=== PATIENT | female | born 1995 | race Caucasian/White ===

== ENCOUNTER 2016-05-16 10:12 | Emergency (ER) | payer BC ==
[~2016-05-16] VITALS: Ht 162.6 cm; Wt 49.8 kg
[2016-05-16 10:16] VITALS: Ht 162.6 cm; Wt 49.8 kg
[2016-05-16] MEDS ORDERED: SODIUM CHLORIDE 0.9% 1000ML 1,000 ML IV STA (10:29)
[2016-05-16] MEDS ORDERED: KETOROLAC TROMETHAMINE 30 MG/ML VIAL IV STA (10:29)
--- NOTE | 2016-05-16 10:35 | EMERGENCY ROOM VISIT NOTE ---
History Report prepared by Kaylin: Brittney Aranda Under the Supervision of: Dr. Luan Tovar D.O. First contact with patient: 10:21 Chief Complaint: NECK PAIN Stated Complaint: NECK PAIN,STIFFNESS,SORE THROAT,ITCHY History of Present Illness The patient is a 21 year old female who presents to the Emergency Room with complaints of persistent neck pain over the past few days. The patient states that earlier this week, she developed body aches, a sore throat, and headache at the back of her head. She was seen at [facility] 3 days ago and was put on Prednisone. Her strep test was negative. When the patient started to take the Prednisone, she noticed itchiness to her feet and legs. She stopped taking the Prednisone because she was concerned about an allergic reaction. She noticed some redness to her feet and legs but attributes the redness to itching. Since then, her headache has moved to the back of her neck. Her pain is worse with movement of her neck. She has noticed improvement in her sore throat and body aches. She had a subjective fever 2 days ago and felt better after taking ibuprofen. She does not have any close contacts ill with similar symptoms. Denies recent travel. Denies cough, runny nose, nausea, vomiting, back pain, vaginal bleeding or discharge, leg swelling, rash, or other complaints. Her last period was 3 weeks ago. It was normal. Source of History: patient Onset: a few days ago Position: neck Timing: other (persistent) Modifying Factors (Worsening): movement Associated Symptoms: + fevers (subjective, resolved), No back pain, No cough , No nausea, No vomiting Review of Systems See HPI for pertinent positives & negatives. A total of 10 systems reviewed and were otherwise negative. Past Medical & Surgical Medical Problems: (1) No Known Active Medical Problems Family History No pertinent family history stated. Social History Smoking Status: Never Smoker Alcohol Use: none Housing Status: lives with roommate Occupation Status: [employer] student Current/Historical Medications Scheduled Control Pills ( Control Pills), 1 TAB PO DAILY Cephalexin Monohydrate (Keflex), 500 MG PO QID Allergies Coded Allergies: No Known Allergies (Unverified , 05/16/16) Physical Exam Vital Signs Date Time Temp Pulse Resp B/P Pulse Ox O2 Delivery O2 Flow Rate FiO2 05/16/16 13:59 37.3 115 16 128/87 100 05/16/16 10:16 37.3 115 16 128/87 100 Room Air Physical Exam GENERAL: Patient is awake, alert, and in no acute distress. Patient is resting comfortably and showing no signs of anxiety EYES: There was bilateral conjunctival injection noted. No discharge was appreciated. Pupils equal round and reactive to light. Extraocular muscles intact. EARS, NOSE, MOUTH AND THROAT: TMs are clear bilaterally. Bilateral tonsillar hypertrophy but no erythema or exudate appreciated. NECK: Anterior cervical adenopathy noted, left greater than right. No meningismus appreciated. RESPIRATORY: Normal respiratory effort is noted there is no evidence of wheezing rhonchi or rales CARDIOVASCULAR: Tachycardic but regular. There were no definite murmurs noted to auscultation. GASTROINTESTINAL: The abdomen is soft. Bowel sounds are present in all quadrants. Abdomen is nontender MUSCULOSKELETAL/EXTREMITIES: There is no evidence of gross deformity full range of motion is noted in the hips and shoulders SKIN: There is no obvious evidence of any rash. There are no petechiae, pallor or cyanosis noted. NEUROLOGIC: Patient is awake alert and oriented x3 strength is symmetric patellar reflexes are 2+ bilaterally Medical Decision & Procedures ER Provider Diagnostic Interpretation: Radiology results as stated below per my review and radiologist interpretation: SOFT TISSUE NECK TECHNIQUE: AP and lateral soft tissue neck FINDINGS: Normal prevertebral soft tissues. No distention of the hypopharynx. The epiglottis is normal. IMPRESSION: Normal study. Electronically signed by: Scar Edmondson M.D. 05/16/2016 11:29 AM Dictated Date/Time: 05/16/2016 11:29 AM TWO VIEW CHEST CLINICAL HISTORY: Fever. FINDINGS: PA and lateral chest radiographs are obtained. No prior studies are available for comparison at the time of dictation. The cardiomediastinal silhouette is unremarkable. The lungs and pleural spaces are clear. There is no pneumothorax. The bony thorax appears intact. IMPRESSION: No active disease in the chest. Electronically signed by: Allen Gunderson M.D. 05/16/2016 11:26 AM Dictated Date/Time: 05/16/2016 11:25 AM Laboratory Results 05/16/16 10:45 Red Blood Count 4.44, Mean Corpuscular Volume 84.2, Mean Corpuscular Hemoglobin 28.8, Mean Corpuscular Hemoglobin Concent 34.2, Mean Platelet Volume 9.1, Neutrophils (%) (Auto) 71.8, Lymphocytes (%) (Auto) 18.8, Monocytes (%) (Auto) 6.4, Eosinophils (%) (Auto) 2.6, Basophils (%) (Auto) 0.2, Neutrophils # (Auto) 9.40, Lymphocytes # (Auto) 2.46, Monocytes # (Auto) 0.84, Eosinophils # (Auto) 0.34, Basophils # (Auto) 0.03 05/16/16 10:45 Test 05/16/16 10:45 05/16/16 11:00 White Blood Count 13.09 K/uL (4.8-10.8) Red Blood Count 4.44 M/uL (4.2-5.4) Hemoglobin 12.8 g/dL (12.0-16.0) Hematocrit 37.4 % (37-47) Mean Corpuscular Volume 84.2 fL (80-100) Mean Corpuscular Hemoglobin 28.8 pg (25-34) Mean Corpuscular Hemoglobin Concent 34.2 g/dl (32-36) Platelet Count 281 K/uL (130-400) Mean Platelet Volume 9.1 fL (7.4-10.4) Neutrophils (%) (Auto) 71.8 % Lymphocytes (%) (Auto) 18.8 % Monocytes (%) (Auto) 6.4 % Eosinophils (%) (Auto) 2.6 % Basophils (%) (Auto) 0.2 % Neutrophils # (Auto) 9.40 K/uL (1.4-6.5) Lymphocytes # (Auto) 2.46 K/uL (1.2-3.4) Monocytes # (Auto) 0.84 K/uL (0.11-0.59) Eosinophils # (Auto) 0.34 K/uL (0-0.5) Basophils # (Auto) 0.03 K/uL (0-0.2) RDW Standard Deviation 42.2 fL (36.4-46.3) RDW Coefficient of Variation 13.6 % (11.5-14.5) Immature Granulocyte % (Auto) 0.2 % Immature Granulocyte # (Auto) 0.02 K/uL (0.00-0.02) Erythrocyte Sedimentation Rate 40 mm/hr (0-21) Anion Gap 12.0 mmol/L (3-11) Est Creatinine Clear Calc Drug Dose 82.0 ml/min Estimated GFR () 112.7 Estimated GFR (Non- 97.3 BUN/Creatinine Ratio 10.1 (10-20) Calcium Level 9.5 mg/dl (8.5-10.1) Total Bilirubin 0.3 mg/dl (0.2-1) Direct Bilirubin < 0.1 mg/dl (0-0.2) Aspartate Amino Transf (AST/SGOT) 7 U/L (15-37) Alanine Aminotransferase (ALT/SGPT) 16 U/L (12-78) Alkaline Phosphatase 62 U/L (45-117) C-Reactive Protein 8.43 mg/dl (0-0.29) Total Protein 8.3 gm/dl (6.4-8.2) Albumin 3.6 gm/dl (3.4-5.0) Lipase 92 U/L (73-393) Human Chorionic Gonadotropin, Qual NEG (NEG) Monoscreen NEG (NEG) Urine Color YELLOW Urine Appearance CLEAR (CLEAR) Urine pH 5.5 (4.5-7.5) Urine Specific [place] 1.020 (1.000-1.030) Urine Protein NEG (NEG) Urine Glucose (UA) NEG (NEG) Urine Ketones NEG (NEG) Urine Occult Blood NEG (NEG) Urine Nitrite NEG (NEG) Urine Bilirubin NEG (NEG) Urine Urobilinogen NEG (NEG) Urine Leukocyte Esterase SMALL (NEG) Urine WBC (Auto) 10-30 /hpf (0-5) Urine RBC (Auto) 0-4 /hpf (0-4) Urine Hyaline Casts (Auto) 5-10 /lpf (0-5) Urine Epithelial Cells (Auto) >30 /lpf (0-5) Urine Bacteria (Auto) 1+ (NEG) Influenza Type A Antigen Neg for Influ A (NEG) Influenza Type B Antigen Neg for Influ B (NEG) Laboratory results per my review. Medications Administered Medications (Trade) Dose Ordered Sig/Tray Route Start Time Stop Time Status Last Admin Dose Admin Ketorolac Tromethamine 30 mg 30 mg NOW STAT IV 05/16/16 10:29 05/16/16 10:30 DC 05/16/16 10:51 30 MG Sodium Chloride (Nss 1000ml) 1,000 ml @ 999 mls/hr Q1H1M STAT IV 05/16/16 10:29 05/16/16 11:29 DC 05/16/16 10:51 999 MLS/HR Ceftriaxone Sodium (Rocephin Inj) 1 gm NOW STAT IV 05/16/16 12:36 05/16/16 12:37 DC 05/16/16 12:42 1 GM ED Course 1025: The patient was evaluated in room C10. A complete history and physical examination were performed. 1029: Ordered NSS 1000 ml @ 999 mls/hr IV, Toradol Inj 30 mg IV. 1236: The patient was called by [facility] and said that her strep test came back positive. Ordered Rocephin Inj 1 gm IV. 1349: Upon reevaluation, the patient is resting comfortably. I discussed the results and treatment plan with the patient. She verbalized agreement of the treatment plan. The patient was discharged home. Medical Decision Prior records/ancillary studies reviewed. Triage Nursing notes reviewed. The patient's history was concerning for fever. Differential diagnosis: Etiologies such as viral syndrome, otitis, pharyngitis, pneumonia, influenza, meningitis, urinary tract infection, sepsis, bacteremia, as well as others were entertained. The patient is a 21-year-old female who presented to the emergency department for an evaluation of febrile illness. The patient's had ongoing symptoms for a few days. She was seen initially at [facility] She had laboratory studies done at that time but started to complain of neck pain and was sent to the emergency department for possible meningitis. The patient did not have meningismus. She did have signs of anterior cervical adenopathy. I discussed the patient's laboratory and radiographic studies with her. She was given Rocephin in the emergency department for possible strep throat. She was called by the [facility] because her strep screen came back positive. She also may have signs of urinary tract infection. Urine was sent for culture. She was encouraged to rest and avoid any strenuous activity. She was also encouraged to drink plenty clear liquids. She was also encouraged to follow-up with [facility] this week for reevaluation or return to the emergency Department immediately if symptoms change worsen or if the need arises. Impression Primary Impression: Fever Additional Impression: Strep throat Scribe Attestation The scribe's documentation has been prepared under my direction and personally reviewed by me in its entirety. I confirm that the note above accurately reflects all work, treatment, procedures, and medical decision making performed by me. Departure Information Dispostion Home / Self-Care Prescriptions Cephalexin Monohydrate (KEFLEX) 500 Mg Cap 500 MG PO QID, #28 CAP Prov: Luan Tovar, DO 05/16/16 Referrals No Doctor, Assigned (PCP) [facility] Patient Instructions My [facility] [address], Strep Throat Additional Instructions Follow-up with [facility] this week. Rest and avoid any strenuous activity. Drink plenty clear liquids. Continue using Motrin and Tylenol as directed for fever and body aches. Problem Qualifiers Primary Impression: Fever Fever type: unspecified Qualified Codes: R50.9 - Fever, unspecified
[2016-05-16 10:55] LABS: HEMATOCRIT 37.4 % (37-47); MEAN CELL VOLUME 84.2 fL (80-100); MEAN CORPUSCULAR HEMOGLOBIN 28.8 pg (25-34); MEAN CORPUSCULAR HGB CONC 34.2 g/dl (32-36); MEAN PLATELET VOLUME 9.1 fL (7.4-10.4); PLATELET COUNT 281 K/uL (130-400); RED BLOOD COUNT 4.44 M/uL (4.2-5.4); WHITE BLOOD COUNT 13.09 K/uL (4.8-10.8)
[2016-05-16 11:19] LABS: PREG INTERNAL NEGATIVE QC NEG CLEAR BACKGROUND; PREG INTERNAL POSITIVE QC POS CONTROL LINE
[2016-05-16 11:19] LABS: URINE APPEARANCE CLEAR (CLEAR); URINE BILIRUBIN NEG (NEG); URINE COLOR YELLOW; URINE EPITHELIAL CELL AUTO >30 /lpf (0-5); URINE NITRITE NEG (NEG); URINE PH 5.5 (4.5-7.5); UROBILINOGEN NEG (NEG)
[2016-05-16 11:22] LABS: MANUAL MICROSCOPIC REQUIRED? NO; REVIEW REQ? NO
[2016-05-16 11:22] LABS: ALT/SGPT 16 U/L (12-78); BLOOD UREA NITROGEN 9 mg/dl (7-18); BUN/CREATININE RATIO 10.1 (10-20); CALCIUM 9.5 mg/dl (8.5-10.1); CARBON DIOXIDE 23 mmol/L (21-32); CHLORIDE 106 mmol/L (98-107); CREATININE 0.86 mg/dl (0.60-1.20); GLUCOSE 92 mg/dl (70-99); POTASSIUM 3.5 mmol/L (3.5-5.1); SODIUM 141 mmol/L (136-145)
[2016-05-16 11:25] LABS: ALKALINE PHOSPHATASE 62 U/L (45-117); AST/SGOT 7 U/L (15-37); C-REACTIVE PROTEIN 8.43 mg/dl (0-0.29)
--- NOTE | 2016-05-16 11:27 | DIAGNOSTIC IMAGING REPORT ---
TWO VIEW CHEST CLINICAL HISTORY: Fever. FINDINGS: PA and lateral chest radiographs are obtained. No prior studies are available for comparison at the time of dictation. The cardiomediastinal silhouette is unremarkable. The lungs and pleural spaces are clear. There is no pneumothorax. The bony thorax appears intact. IMPRESSION: No active disease in the chest. Electronically signed by: Allen Gunderson M.D. 05/16/2016 11:26 AM Dictated Date/Time: 05/16/2016 11:25 AM
--- NOTE | 2016-05-16 11:30 | DIAGNOSTIC IMAGING REPORT ---
SOFT TISSUE NECK TECHNIQUE: AP and lateral soft tissue neck FINDINGS: Normal prevertebral soft tissues. No distention of the hypopharynx. The epiglottis is normal. IMPRESSION: Normal study. Electronically signed by: Scar Edmondson M.D. 05/16/2016 11:29 AM Dictated Date/Time: 05/16/2016 11:29 AM
[2016-05-16] MEDS ORDERED: BCPILLS PO (11:35)
[2016-05-16 12:07] LABS: BASO % 0.2 %; BASO ABS # 0.03 K/uL (0-0.2); COMPLETE YES; EOS % 2.6 %; IG% 0.2 %; LYMPH % 18.8 %; LYMPH ABS # 2.46 K/uL (1.2-3.4); MONO % 6.4 %; NEUT % 71.8 %
[2016-05-16] MEDS ORDERED: CEFTRIAXONE SOD INJ 1 GM ADDVIAL IV STA (12:36)
[2016-05-16] MEDS ORDERED: CEPH500C2 PO (13:53)
[2016-05-16 13:59] VITALS: BP 128/87; PULSE 115; TEMP 37.3; O2SAT 100
== END 2016-05-16 14:00 | disposition home or self-care (01) ==
LOC: C.EDB 10:15 → C.EDC 14:00
DX: R50.9 Fever, unspecified (principal); J02.0 Streptococcal pharyngitis